=== PATIENT | male | born 1960 | race Caucasian/White ===

== ENCOUNTER 2020-12-05 10:23 | Emergency (ER) | payer MEDICAID ==
--- NOTE | 2020-12-05 11:39 | CR ---
PROCEDURE INFORMATION: Exam: XR Right Elbow Exam date and time: 12/05/2020 10:55 AM Age: 60 years old Clinical indication: Other: Suspected foreign body soft tissue TECHNIQUE: Imaging protocol: XR Right elbow. Views: 1 or 2 views. COMPARISON: No relevant prior studies available. FINDINGS: Bones/joints: Minimal degenerative change at the elbow joint. No fracture or malalignment. No active erosions or active periostitis. Soft tissues: 3 tiny punctate 1 mm foci of slightly increased density, with adjacent amorphous ill-defined 13 x 6 mm lobulated soft tissue density project over the subcutaneous fat of the medial distal upper arm just proximal to the medial humeral epicondyle. This could be artifact from vessels, skin lesion, or could represent soft tissue foreign bodies. However, densities are less than that of calcification. No metallic foreign body is seen. No focal soft tissue swelling. No evidence of elbow joint effusion. IMPRESSION: 1. No acute osseous abnormality. Minimal degenerative change at the elbow joint. 2. Three tiny punctate 1 mm foci of slightly increased density, with larger adjacent amorphous ill-defined lobulated soft tissue density measuring 13.6 cm overlying the subcutaneous fat at the medial distal upper arm, of uncertain etiology. This could be artifact from vessels, skin lesion, or could represent soft tissue foreign bodies. However, densities are less than that of calcification. No metallic foreign body is seen. Recommend correlation with the clinically suspected foreign body. Of note, some foreign bodies are not radiopaque.
--- NOTE | 2020-12-05 11:54 | EDM.PDOC ---
Scribed by Lynne Gonzales 12/05/20 1147 for Farhan Church MD ED HPI GENERAL MEDICAL PROBLEM - General Chief Complaint: Upper Extremity Injury/Pain Stated Complaint: RIGHT ARM, HAD IV, HARDNESS UNDERNEATH SKIN Time Seen by Provider: 12/05/20 10:45 Source of Information: Reports: Patient, RN Notes Reviewed History Limitations: Reports: No Limitations - History of Present Illness INITIAL COMMENTS - FREE TEXT/NARRATIVE: 60 y/o M c/o R arm pain in the bend of his anterior elbow. Pt was in the [facility] ER November 11 for treatment of HTN. WHile there he had an IV placed in his R AC. 2 days after his ER visit pt notice a hard lump at the site where the IV catheter was placed. Pt states his arm feels heavy as if he has done a lot of arm curls. Denies redness, swelling at the site. Denies fever, cough, chills, drugs, etoh, ARREOLA, cp, db, abd pn, diff voiding. He also presents with HTN today and has kept a log of all of his blood pressures which have consistently been elevated. Pt reports he is taking his medications as prescribed. 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 ED EXAM, GENERAL - Physical Exam Exam: See Below Exam Limited By: No Limitations General Appearance: Alert, No Apparent Distress Nose: Normal Inspection, Normal Mucosa Throat/Mouth: Normal Inspection, Normal Lips, Normal Oropharynx, Normal Voice, No Airway Compromise Head: Atraumatic, Normocephalic Neck: Normal Inspection, Supple, Non-Tender Respiratory/Chest: No Respiratory Distress, Lungs Clear Cardiovascular: Normal Peripheral Pulses, Regular Rate, Rhythm GI/Abdominal: Soft, Non-Tender (Male) Exam: Deferred Rectal (Males) Exam: Deferred Back Exam: Normal Inspection, Full Range of Motion Extremities: Normal Inspection (Except for a hard palpable mass at the R ac the follows the median cubital vein), Normal Range of Motion, Non-Tender, Normal Capillary Refill, No Pedal Edema Neurological: Alert, Oriented Psychiatric: Normal Affect Skin Exam: Warm, Dry, Intact, Normal Color, No Rash Course - Vital Signs Last Recorded V/S: Last Vital Signs Temp 98.9 F 12/05/20 10:45 Pulse 71 12/05/20 10:45 Resp 16 12/05/20 10:45 BP 181/96 H 12/05/20 10:45 Pulse Ox 96 12/05/20 10:45 - Re-Assessments/Exams Free Text/Narrative Re-Assessment/Exam: 12/05/20 I offered to transfer the pt or call [facility] to arrange an vascular duplex study of his right arm, but pt declines. He prefers to be discharge and make his own arrangements. Departure - Departure Time of Disposition: 11:43 Disposition: Home, Self-Care 01 Condition: Good Clinical Impression: Phlebitis of right arm - Discharge Information *PRESCRIPTION DRUG MONITORING PROGRAM REVIEWED*: Not Applicable *COPY OF PRESCRIPTION DRUG MONITORING REPORT IN PATIENT SHANNAN: Not Applicable Instructions: Thrombophlebitis Forms: ED Department Discharge Additional Instructions: No foreign body seen on right arm x-ray. Recommend venous doppler ultrasound of the area, however that is not available at this facility. Follow up with your doctor or a facility with vascular ultrasound capabilities. Sepsis Event Note (ED) - Evaluation Sepsis Screening Result: No Definite Risk - Focused Exam Vital Signs: Vital Signs Temp Pulse Resp BP Pulse Ox 12/05/20 10:45 98.9 F 71 16 181/96 H 96 I have read and agree with the documentation that has been completed regarding t his visit. By signing this record, I attest that the documentation was completed in my physical presence and is an accurate record of the encounter.
== END 2020-12-05 11:53 | disposition home or self-care (01) ==
LOC: DL.ED 10:23
DX: I80.3 Phlebitis and thrombophlebitis of lower extremities, unspecified (principal); E78.00 Pure hypercholesterolemia, unspecified; I10 Essential (primary) hypertension; Z72.0 Tobacco use; Z88.1 Allergy status to other antibiotic agents; Z79.899 Other long term (current) drug therapy
CPT/HCPCS: 73070-RT; 99283; 99283-25

== ENCOUNTER 2023-02-03 11:28 | Emergency (ER) | payer MEDICAID ==
[2023-02-03] MEDS ORDERED: Sodium Chloride 0.9% 10 ML Syringe FLUSH PRN (11:41)
[2023-02-03] MEDS ORDERED: diphenhydrAMINE 50 MG/ML SDV IVPUSH ONE (11:42)
[2023-02-03 11:56] LABS: BASOPHILS PERCENT AUTO 0.4 % (0.0-1.0); EOSINOPHILS PERCENT AUTO 1.3 % (1.0-3.0); HEMATOCRIT 44.3 % (40.0-54.0); HEMOGLOBIN 15.4 g/dL (14.0-18.0); LYMPHOCYTES PERCENT AUTO 16.8 % (20.5-50.1); MEAN CORPUSCULAR HEMOGLOBIN 29.7 pg (27.0-34.0); MEAN CORPUSCULAR HGB CONC 34.8 g/dL (33.0-35.0); MEAN CORPUSCULAR VOLUME 85.4 fL (80-100); MONOCYTES PERCENT AUTO 9.3 % (2-8); NEUTROPHILS PERCENT AUTO 72.2 % (42.2-75.2); PLATELET COUNT,PLT 228 10^3/uL (150-450); RED BLOOD CELL COUNT 5.19 10^6/uL (4.6-6.2); WHITE BLOOD CELL COUNT,WBC 14.3 10^3/uL (5.0-10.0)
== END 2023-02-03 13:49 | disposition home or self-care (01) ==
LOC: DL.ED 11:28
DX: L03.115 Cellulitis of right lower limb (principal); I10 Essential (primary) hypertension; E78.00 Pure hypercholesterolemia, unspecified; Z88.8 Allergy status to other drugs, medicaments and biological substances
CPT/HCPCS: 36415; 83605; 85025; 86140; 96365; 96375; 99283-25; 99284; J1200; J3370; J3490; J7050

== ENCOUNTER 2024-08-19 05:48 | Day surgery (SDC) | payer MEDICAID ==
[2024-08-19] MEDS ORDERED: fentaNYL 100 MCG/2 ML SDV IV ONE (06:19)
[2024-08-19] MEDS ORDERED: Midazolam 1 MG/ML 2 ML SDV IV ONE (06:19)
[2024-08-19] MEDS ORDERED: fentaNYL 100 MCG/2 ML SDV ONE (06:19)
[2024-08-19] MEDS ORDERED: Midazolam 1 MG/ML 2 ML SDV ONE (06:19)
[2024-08-19] MEDS: Dextrose 5%-0.45% NaCl 1,000 ML IV SCH (06:28)
[2024-08-19] MEDS: fentaNYL 100 MCG/2 ML SDV IV ONE ×2 (06:34→06:35)
[2024-08-19] MEDS: Midazolam 1 MG/ML 2 ML SDV IV ONE ×2 (06:36→06:37)
== END 2024-08-19 08:07 | disposition home or self-care (01) ==
LOC: DL.ENDO 05:48
PROVIDERS: ATTEND Internal Medicine Gastroenterology
DX: K29.50 Unspecified chronic gastritis without bleeding (principal); B96.81 Helicobacter pylori [H. pylori] as the cause of diseases classified elsewhere; K29.80 Duodenitis without bleeding; K20.90 Esophagitis, unspecified without bleeding; K44.9 Diaphragmatic hernia without obstruction or gangrene; I10 Essential (primary) hypertension; F17.210 Nicotine dependence, cigarettes, uncomplicated; Z88.8 Allergy status to other drugs, medicaments and biological substances
CPT/HCPCS: 43239; J2250; J3010

== ENCOUNTER 2024-09-05 06:26 | Day surgery (SDC) | payer MEDICAID ==
[2024-09-05] MEDS ORDERED: Lidocaine 2% 20 ML MDV NERVRT ONE (06:27)
[2024-09-05] MEDS ORDERED: LACTATED RINGERS IV ONE (06:27)
[2024-09-05] MEDS ORDERED: Propofol 200 MG/20 ML SDV IV ONE (06:27)
[2024-09-05] MEDS: Lactated Ringers 1,000 ML IV SCH (07:04)
== END 2024-09-05 10:03 | disposition home or self-care (01) ==
LOC: DL.ENDO 06:26
PROVIDERS: ATTEND Internal Medicine Gastroenterology
DX: D12.2 Benign neoplasm of ascending colon (principal); D12.4 Benign neoplasm of descending colon; D12.8 Benign neoplasm of rectum; K64.8 Other hemorrhoids; I10 Essential (primary) hypertension
CPT/HCPCS: 45385; J7120; J2003; J2704